=== PATIENT | female | born 1980 | race Hispanic/Latino ===

== ENCOUNTER 2018-10-31 02:39 | Inpatient (IN) | payer SELFPAY ==
[2018-10-31] MEDS ORDERED: Ondansetron PF 4 MG/2 ML Vial IVP PRN (06:12)
[2018-10-31] MEDS ORDERED: Ondansetron ODT 4 MG TAB PO PRN (06:12)
[2018-10-31] MEDS ORDERED: Acetaminophen 325 MG TAB PO PRN (06:12)
[2018-10-31] MEDS ORDERED: Morphine 4 MG/ML VIAL SLOW IVP PRN (06:14)
[2018-10-31 06:21] VITALS: BMI 28.3
[2018-10-31] MEDS: Sodium Chloride 0.9% 1,000 ML IV SCH ×2 (07:00→13:42)
[2018-10-31] MEDS ORDERED: Ketorolac Tromethamine 30 MG/ML VIAL IVP SCH (12:00)
[2018-10-31] MEDS ORDERED: Acetaminophen 1,000 MG in Premix Bag 1 BAG IVPB SCH ×2 (12:00→18:00)
[2018-10-31] MEDS ORDERED: Sodium Chloride 0.9% 1,000 ML IV SCH (12:01)
--- NOTE | 2018-10-31 12:19 | HP ---
HISTORY OF PRESENT ILLNESS: Bell Shoemaker is a 37-year-old female, Czech speaking only, presents in transfer from [place] with 24 hours of periumbilical pain. The pain is worse with movement. It was followed by nausea and vomiting yesterday. She has suffered anorexia. In the hospital, she was evaluated in [place], and her white count was 15 and hemoglobin 13. Basic metabolic profile normal. Glucose 112. Urine test was negative. The patient underwent a CAT scan in [place] demonstrating changes consistent with appendicitis, correlating with her history and physical. She does have some punctate nonobstructive left nephrolithiasis. ALLERGIES: NONE. SOCIAL HISTORY: Tobacco, none. Alcohol, none. MEDICATIONS: None. PAST SURGICAL HISTORY: , tubal ligation, and cholecystectomy. PAST MEDICAL HISTORY: Noncontributory. REVIEW OF SYSTEMS: Ten-point noncontributory. PHYSICAL EXAMINATION: VITAL SIGNS: Height 5 feet 2 inches, weight 155 pounds, 28 BMI. HEAD EARS, EYES, NOSE, AND THROAT: Unremarkable. LUNGS: Clear to auscultation. CARDIAC: Regular rate and rhythm without murmur or gallop. ABDOMEN: Soft. Tenderness in right lower quadrant, guarding and rebound at McBurney point. EXTREMITIES: Unremarkable. No ankle edema. NEUROLOGICAL: Intact. GCS 15. SKIN: Normal. LABORATORY DATA: As above. ASSESSMENT AND PLAN: Acute appendicitis. We recommend a laparoscopic video appendectomy. Risks of infection, bleeding, and visceral injury discussed. Open procedure discussed. Questions were answered. Job ID: [id number]
[2018-10-31] MEDS ORDERED: Bupivacaine HCl 0.25%/Epi 0.0005/PF 10 ML VIAL FS ONE (13:06)
[2018-10-31] MEDS ORDERED: Bupivacaine HCl 0.5%/Epinephrine 1:200,000/PF 30 ml Vial ONE (13:06)
[2018-10-31] MEDS ORDERED: Fentanyl 100 MCG/2 ML VIAL ONE (13:20)
[2018-10-31] MEDS ORDERED: Promethazine HCl 25 MG/ML VIAL SLOW IVP PRN (13:55)
[2018-10-31] MEDS ORDERED: Ondansetron HCl/PF 4 MG/2 ML Vial IVP PRN (13:55)
[2018-10-31] MEDS ORDERED: Promethazine HCl 25 MG/ML VIAL IM PRN (13:55)
[2018-10-31] MEDS ORDERED: Meperidine HCl/PF 25 MG/ML VIAL SLOW IVP PRN (13:55)
[2018-10-31] MEDS ORDERED: traMADol HCl 50 MG TAB PO PRN ×2 (14:50)
[2018-10-31] MEDS ORDERED: Ibuprofen 600 MG TAB PO PRN (14:50)
[2018-10-31] MEDS ORDERED: Acetaminophen 500 MG TAB PO SCH (15:00)
[2018-10-31 15:19] VITALS: BP 95/60; TEMP 97.8
[2018-10-31] MEDS ORDERED: Ketorolac Tromethamine 30 MG/ML VIAL ONE (15:38)
[2018-10-31] MEDS ORDERED: Glycopyrrolate 0.2 MG/ML 5 ML SYRINGE ONE (15:38)
[2018-10-31] MEDS ORDERED: Succinylcholine Chloride 20 MG/ML 10 ml SYRINGE FS ONE (15:38)
[2018-10-31] MEDS ORDERED: Ondansetron PF 4 MG/2 ML Vial ONE (15:38)
[2018-10-31] MEDS ORDERED: Rocuronium Bromide 10 MG/ML (10ML VIAL) ONE (15:38)
[2018-10-31] MEDS ORDERED: PROPOFOL 200 MG/20 ML VIAL ONE (15:38)
[2018-10-31] MEDS ORDERED: Lidocaine 1% PF 5 ML VIAL ONE (15:38)
[2018-10-31] MEDS ORDERED: Dexamethasone 20 MG/5 ML VIAL ONE (15:38)
--- NOTE | 2018-10-31 15:48 | OP ---
DATE OF PROCEDURE: 10/31/2018 PREOPERATIVE DIAGNOSIS: Acute appendicitis. POSTOPERATIVE DIAGNOSIS: Acute appendicitis. PROCEDURE PERFORMED: Laparoscopic video appendectomy. ANESTHESIA: General and local with 0.5% Marcaine with epinephrine 30 mL, 0.25% Marcaine with epinephrine 10 mL. DESCRIPTION OF PROCEDURE: The patient was taken to the operating room, where under general anesthesia, abdomen was prepared with ChloraPrep and draped in routine fashion. Epps catheter placed at the beginning of the procedure, removed at the end. Abdomen was prepared with ChloraPrep, draped in routine fashion. Local anesthetic was infiltrated in the skin and subcutaneous tissue about each port site. A vertical incision was made. Pneumoperitoneum to 15 mmHg obtained with a Veress needle, replaced with a 5 port, laparoscope was inserted. Right subcostal incision made laterally and 5 mm port placed. Suprapubic incision made and a 12 port placed. Acute appendicitis, gangrenous appendix noted. No rupture or purulence noted. There were some adhesions supraumbilical around the uterus from previous and these were avoided. Mesoappendix was taken down with the LigaSure. The stump of the appendix divided with Endo-OTTONIEL blue load stapler. Stapled cecal stump was hemostatic and secured as the gangrenous appendix placed in Endobag and removed. Suprapubic fascia was approximated with 0 Vicryl. Pericecal area irrigated. Irrigant evacuated. Good hemostasis was assured. Pneumoperitoneum evacuated. All instruments were removed and all skin incisions were approximated with interrupted subdermal 4-0 Monocryl and [place] glue applied. Job ID: [id number]
--- NOTE | 2018-10-31 16:12 | DIS ---
DATE OF ADMISSION: 10/31/2018 DATE OF DISCHARGE: 10/31/2018 DISCHARGE DIAGNOSIS: Appendicitis. PROCEDURE PERFORMED: Laparoscopic video appendectomy. CAT scan of the abdomen and pelvis. HOSPITAL COURSE: The patient was seen at an outside hospital. History and exam were consistent with appendicitis, CAT scan confirmed. She was transferred to [facility], hospitalized as an inpatient. She had received intravenous antibiotics overnight and underwent laparoscopic video appendectomy, discharged home on same day. Diet and activity as tolerated. No lifting restrictions. Follow up in my office in 2 to 3 weeks. Job ID: [id number]
== END 2018-10-31 19:20 | disposition home or self-care (01) | DRG 343 ==
LOC: ERS 02:39 → SURG A 03:20 → ERS 04:04
PROVIDERS: ADMIT Specialist; ATTEND Specialist
PROC: 0DTJ4ZZ Resection of Appendix, Percutaneous Endoscopic Approach (ICD-10-PCS; principal; 2018-10-31)
DX: K35.891 Other acute appendicitis without perforation, with gangrene (principal); Z90.49 Acquired absence of other specified parts of digestive tract; Z98.890 Other specified postprocedural states
CPT/HCPCS: 88304; J0131; J0670; J1100; J1885; J1956; J2001; J2270; J2405; J2704; J3010